=== PATIENT | female | born 1990 | race Two or more races ===

== ENCOUNTER 2017-09-19 01:45 | Inpatient (IN) | payer OTHER ==
[2017-09-19] MEDS ORDERED: OXYTOCIN 20 UNITS in 0.9% NS 20 UNIT/1,000 ML INFUS.BAG IV ONE ×2 (02:28→04:34)
[2017-09-19] MEDS: OXYTOCIN 20 UNITS in 0.9% NS 20 UNIT/1,000 ML INFUS.BAG IV SCH ×2 (02:55→05:00)
[2017-09-19] MEDS: ACETAMINOPHEN 325 MG TABLET (FP) PO PRN ×2 (03:10→09:44)
[2017-09-19] MEDS: IBUPROFEN 600 MG TABLET (FP) PO PRN ×2 (03:10→09:45)
[2017-09-19] MEDS ORDERED: IBUPROFEN 600 MG TABLET (FP) PO ONE (03:12)
[2017-09-19] MEDS ORDERED: ACETAMINOPHEN 325 MG TABLET (FP) ONE (03:12)
[2017-09-19] MEDS ORDERED: WITCH HAZEL 50% (TUCKS) 40 PAD/JAR PAD TP PRN (03:14)
[2017-09-19] MEDS ORDERED: METHYLERGONOVINE MALEATE 0.2 MG/1 ML AMP IM PRN (03:14)
[2017-09-19] MEDS ORDERED: BENZOCAINE 28 GM HEMORRHOIDAL OINTMENT TP PRN (03:14)
[2017-09-19] MEDS ORDERED: BISACODYL 10 MG SUPP.RECT RC PRN (03:14)
[2017-09-19] MEDS ORDERED: BENZOCAINE 20% 57 GM BOTTLE TP PRN (03:14)
--- NOTE | 2017-09-19 03:20 | HP ---
Past Medical History - Admission Chief Complaint: Labor pain History of Present Illness: 27 yo Para 1 @ 40 weeks gestation, admitted for labor pain. History Source: Patient Limitations to Obtaining History: No Limitations - Past Medical History ...: 3 ...Para: 1 - Past Surgical History Past Surgical History: Yes: Breast Biopsy, Cholecystectomy Hx Myomectomy: No Hx Transabdominal Cerclage: No - Smoking History Have you smoked in the past 12 months: No - Alcohol/Substance Use Hx Alcohol Use: No History of Substance Use: reports: None - Social History Usual Living Arrangement: Yes: With Spouse History of Recent Travel: No Home Medications - Allergies Allergies/Adverse Reactions: Allergies Allergy/AdvReac Type Severity Reaction Status Date / Time No Known Allergies Allergy Verified 09/19/17 03:33 - Home Medications Home Medications: Ambulatory Orders Vitamins (Sjr) - 1 tab PO DAILY 06/21/17 Family Disease History - Family Disease History Family History: Unremarkable Review of Systems - Review of Systems Constitutional: reports: No Symptoms Eyes: reports: No Symptoms HENT: reports: No Symptoms Neck: reports: No Symptoms Cardiovascular: reports: No Symptoms Respiratory: reports: No Symptoms Gastrointestinal: reports: No Symptoms Genitourinary: reports: Pain Breasts: reports: No Symptoms Reported Musculoskeletal: reports: No Symptoms Integumentary: reports: No Symptoms Neurological: reports: No Symptoms Endocrine: reports: No Symptoms Hematology/Lymphatic: reports: No Symptoms Psychiatric: reports: No Symptoms Pain Intensity: 9 Physical Exam - Maternity Constitutional: Yes: Well Nourished Eyes: Yes: Conjunctiva Clear HENT: Yes: Atraumatic Neck: Yes: Supple Cardiovascular: Yes: Regular Rate and Rhythm Lungs: Clear to auscultation - Abdominal Exam/OB Number of Fetuses: Single Presentation: Vertex - Vaginal Exam/OB Dilatation (cm): 6 Effacement (%): 100 Amniotic Membrane Status: Bulging - Physical Exam ...Motor Strength: WNL Psychiatric: Yes: Alert, Oriented Problem List - Problems (1) Pain during labor Code(s): O99.89 - OTH DISEASES AND CONDITIONS COMPL PREG/CHLDBRTH; R52 - PAIN, UNSPECIFIED (2) Status post vaginal delivery Code(s): OGH4093 - Assessment/Plan Active labor Admit to L&D Anticipate
--- NOTE | 2017-09-19 03:21 | PN ---
Delivery - Delivery Vaginal Delivery: Spontaneous Episiotomy/Laceration: 1st degree EBL (cc): 300 Delivery, Single - 1 Minute Total Score: 8 5 Minutes Total Score: 9 Remarks - Remarks Remarks: Normal spontaneous vaginal delivery of a live . Nose / oropharynx suctioned @ perineum. Cord clamped and cut. Placenta expelled spontaneously intact. Laceration repaired with 2.0 Chromic
[2017-09-19 04:03] VITALS: BMI 25.7
[2017-09-19 04:03] LABS: BASO % 0.2 % (0-2.0); EOS % 0.4 % (0-4.5); HEMATOCRIT 38.7 % (32.4-45.2); HEMOGLOBIN 12.9 GM/dL (10.7-15.3); LYMPH % 28.9 % (8-40); MCH 30.6 pg (25.7-33.7); MCHC 33.2 g/dl (32.0-36.0); MEAN CELL VOLUME 92.3 fl (80-96); MEAN PLT VOLUME 9.3 fl (7.5-11.1); MONO % 6.8 % (3.8-10.2); NEUT % 63.7 % (42.8-82.8); PLATELET COUNT 210 K/MM3 (134-434); WHITE BLOOD COUNT 9.1 K/mm3 (4.0-10.0)
[2017-09-19 04:15] LABS: INR 0.88 (0.82-1.09); PROTHROMBIN TIME (PATIENT) 9.9 SEC (9.7-13.0)
[2017-09-19 04:18] LABS: ACTIVATED PTT 27.2 SECONDS (25.2-36.5)
[2017-09-19 04:23] LABS: ANION GAP 11 (8-16); BLOOD UREA NITROGEN 12 mg/dL (7-18); CALCIUM 9.2 mg/dL (8.5-10.1); CHLORIDE 104 mmol/L (98-107); CO2 23 mmol/L (21-32); CREATININE 0.6 mg/dL (0.55-1.02); GLUCOSE,RANDOM 81 mg/dL (74-106); POTASSIUM 3.8 mmol/L (3.5-5.1); SODIUM 138 mmol/L (136-145)
[2017-09-19] MEDS: PRENATAL VITAMINS W/ FOLIC ACID TABLET (FP) PO SCH (09:44)
[2017-09-19] MEDS: FERROUS SO4 325 MG TABLET (FP) PO SCH ×2 (09:44→22:15)
[2017-09-19] MEDS: SENNOSIDES/DOCUSATE COMBO (SENNA PLUS) TABLET (UD) PO PRN (22:15)
--- NOTE | 2017-09-20 08:38 | PN ---
Progress Note (short form) - Note Progress Note: ppd 1 doing well, no c/o voids ok CBC, BMP 09/19/17 03:00 Last Vital Signs Temp Pulse Resp BP Pulse Ox 98.2 F 72 20 114/56 99 09/20/17 01:22 09/20/17 01:22 09/20/17 01:22 09/20/17 01:22 09/19/17 04:00 abdomen soft, uterus firm lochia mild no calf tenderness plan ambulate, d/c home in am
[2017-09-20 09:01] LABS: BASO % 0.7 % (0-2.0); EOS % 0.8 % (0-4.5); HEMOGLOBIN 11.1 GM/dL (10.7-15.3); LYMPH % 25.6 % (8-40); MCH 31.8 pg (25.7-33.7); MCHC 34.8 g/dl (32.0-36.0); MEAN CELL VOLUME 91.5 fl (80-96); MEAN PLT VOLUME 8.7 fl (7.5-11.1); MONO % 6.2 % (3.8-10.2); NEUT % 66.7 % (42.8-82.8); PLATELET COUNT 172 K/MM3 (134-434); RBC 3.49 M/mm3 (3.60-5.2); RDW 13.2 % (11.6-15.6)
[2017-09-20] MEDS ORDERED: DIPHTH,PERTUSS(ACELL),TET 0.5 ML DISP.SYRIN IM ONE (10:00)
[2017-09-20] MEDS: PRENATAL VITAMINS W/ FOLIC ACID TABLET (FP) PO SCH (10:11)
[2017-09-20] MEDS: FERROUS SO4 325 MG TABLET (FP) PO SCH ×2 (10:11→21:59)
[2017-09-20] MEDS: SENNOSIDES/DOCUSATE COMBO (SENNA PLUS) TABLET (UD) PO PRN (21:59)
--- NOTE | 2017-09-21 08:17 | DS ---
Physical Exam-[facility] Vital Signs: Vital Signs Temperature 98.4 F 09/20/17 22:00 Pulse Rate 68 09/20/17 22:00 Respiratory Rate 20 09/20/17 22:00 Blood Pressure 111/54 09/20/17 22:00 O2 Sat by Pulse Oximetry (%) 99 09/19/17 04:00 Constitutional: Yes: Well Nourished, No Distress, Calm Eyes: Yes: WNL, Conjunctiva Clear, EOM Intact HENT: Yes: WNL, Atraumatic, Normocephalic Neck: Yes: WNL, Supple, Trachea Midline Cardiovascular: Yes: WNL, Regular Rate and Rhythm Respiratory: Yes: WNL, Regular, CTA Bilaterally Gastrointestinal: Yes: WNL ...Rectal Exam: Yes: WNL Renal/: Yes: WNL ....Post : Yes: Uterus firm, Uterus non-tender, Slight lochia rubra Breast(s): Yes: WNL Musculoskeletal: Yes: WNL Extremities: Yes: WNL Integumentary: Yes: WNL Neurological: Yes: WNL, Alert, Oriented ...Motor Strength: WNL Psychiatric: Yes: WNL, Alert, Oriented Labs: CBC, BMP 09/20/17 08:25 09/19/17 03:00 Delivery - Delivery Vaginal Delivery: Spontaneous Type of Anesthesia: Local Episiotomy/Laceration: 1st degree EBL (cc): 300 Delivery, Single - Stages of Labor Date 1st Stage Initiatied: 09/19/17 Time 1st Stage Initiated: 21:00 Date 2nd Stage Initiated: 09/19/17 Time 2nd Stage Initiated: 02:25 Date of Delivery: 09/19/17 Time of Delivery: 02:34 Time Placenta Delivered: 02:55 - Condition of [place] Out/[employer] Preparation Supervisor Present: No Infant Gender: Male Weight: 7 lb 5 oz Position: Left, OA Total Hours ROM (Hrs/Mins): 35MIN - 1 Minute Total Score: 8 5 Minutes Total Score: 9 - [place] Feeding Plan Initial Plan: Elected not to breastfeed exclusively throughout hospitalization Discharge Summary Reason For Visit: LABOR Current Active Problems Pain during labor (Acute) Status post vaginal delivery (Acute) Procedures: Principal: Condition: Good - Instructions Diet, Activity, Other Instructions: regular diet, no intercourse , follow up [facility] care 4 weeks Disposition: HOME - Home Medications Comprehensive Discharge Medication List: Ambulatory Orders Vitamins (Sjr) - 1 tab PO DAILY 06/21/17
[2017-09-21] MEDS: FERROUS SO4 325 MG TABLET (FP) PO SCH (09:13)
[2017-09-21] MEDS: PRENATAL VITAMINS W/ FOLIC ACID TABLET (FP) PO SCH (09:14)
[2017-09-21 11:40] VITALS: BP 104/58; PULSE 82; TEMP 98.5
== END 2017-09-21 14:05 | disposition home or self-care (01) | DRG 560 ==
LOC: JDEL 01:45 → JLDR 02:05 → J3W 05:39
PROVIDERS: ADMIT Obstetrics & Gynecology; ATTEND Obstetrics & Gynecology
PROC: 0HQ9XZZ Repair Perineum Skin, External Approach (ICD-10-PCS; principal; 2017-09-19)
PROC: 10E0XZZ Delivery of Products of Conception, External Approach (ICD-10-PCS; 2017-09-19)
DX: O48.0 Post-term pregnancy (principal); O70.0 First degree perineal laceration during delivery; Z3A.40 40 weeks gestation of pregnancy; Z37.0 Single live birth
CPT/HCPCS: 36415; 59409; 80048; 85025; 85610; 85730; 86593; 86850; 86900; 86901; 90715

== ENCOUNTER 2022-05-11 15:21 | Emergency (ER) | payer OTHER ==
[2022-05-11 15:36] VITALS: BP 110/63; PULSE 75; RESP 20; TEMP 98; BMI 26.7
[2022-05-11] MEDS ORDERED: KETOROLAC TROMETHAMINE 30 MG/1 ML VIAL IM ONE (16:27)
[2022-05-11] MEDS ORDERED: LIDOCAINE 5% TOPICAL PATCH TP ONE (16:27)
[2022-05-11] MEDS ORDERED: METHOCARBAMOL 500 MG TABLET PO ONE (16:27)
[2022-05-11] MEDS ORDERED: IBUPROFEN 600 MG TABLET (FP) PO ONE (16:31)
[2022-05-11] MEDS ORDERED: METHOCARBAMOL 500 MG TABLET ONE (16:31)
[2022-05-11] MEDS ORDERED: LIDOCAINE 5% TOPICAL PATCH ONE (16:31)
[2022-05-11] MEDS ORDERED: KETOROLAC TROMETHAMINE 30 MG/1 ML VIAL ONE (16:31)
== END 2022-05-11 18:00 | disposition home or self-care (01) ==
LOC: JERFT 15:21
PROC: 3E0233Z Introduction of Anti-inflammatory into Muscle, Percutaneous Approach (ICD-10-PCS; principal; 2022-05-11)
DX: M25.511 Pain in right shoulder (principal); M79.601 Pain in right arm; M54.6 Pain in thoracic spine
CPT/HCPCS: 99284-25

== ENCOUNTER 2024-09-11 09:42 | Emergency (ER) | payer OTHER ==
[2024-09-11] MEDS ORDERED: ACETAMINOPHEN INJECTION 100 ML ONE (10:17)
[2024-09-11 10:38] VITALS: BP 113/66; PULSE 103; RESP 18; TEMP 99.8; BMI 23.5
[2024-09-11] MEDS: ACETAMINOPHEN 1000 MG/100 ML BAG IVPB ONE (10:42)
[2024-09-11] MEDS: SODIUM CHLORIDE 0.9% 500 ML INFUS.BAG IV ONE (10:42)
[2024-09-11 10:51] LABS: MCHC 33.4 g/dl (32.2-35.5); MEAN CELL VOLUME 89.8 fl (79.4-94.8); MEAN PLT VOLUME 8.9 fl (9.4-12.3); RDW 12.3 % (12.1-16.8)
[2024-09-11 11:04] LABS: THROAT:GRP A STREP NOT DETECTED (NOTDETECTED)
[2024-09-11 11:28] LABS: CO2 26.0 mmol/L (21-32); GLUCOSE,RANDOM 93.0 mg/dL (74-106)
[2024-09-11 11:30] LABS: CREATININE 0.6 mg/dL (0.55-1.3); SGOT/AST 22.0 U/L (15-37); SGPT/ALT 37.0 U/L (13-61)
[2024-09-11 11:33] LABS: TOT PROT 6.6 g/dl (6.4-8.2)
[2024-09-11 11:34] LABS: ALK PHOS 64.0 U/L (45-117)
[2024-09-11 11:48] LABS: ERYTHROCYTE SEDIMENTATION RATE 12 mm/hr (0-20)
[2024-09-11 13:39] LABS: HCV DIAGNOSTIC IN-HOUSE W/RFLX NON-REACTIVE (NONREACTIVE); HIV INTERPRETATION NEGATIVE (NEGATIVE)
== END 2024-09-11 11:41 | disposition home or self-care (01) ==
LOC: JER 09:42
PROC: 3E033NZ Introduction of Analgesics, Hypnotics, Sedatives into Peripheral Vein, Percutaneous Approach (ICD-10-PCS; principal; 2024-09-11)
DX: M25.531 Pain in right wrist (principal); M25.532 Pain in left wrist; B34.9 Viral infection, unspecified; R50.9 Fever, unspecified; R21 Rash and other nonspecific skin eruption; L29.9 Pruritus, unspecified; M25.431 Effusion, right wrist; M25.432 Effusion, left wrist; R00.0 Tachycardia, unspecified; M25.541 Pain in joints of right hand; M25.542 Pain in joints of left hand
CPT/HCPCS: 36415; 71046-TC-FY; 80053; 85025; 85651; 86308; 86803; 87389; 87637-QW; 87651; 99284-25